=== PATIENT | male | born 1940 | race Native Hawaiian/Other Pacific Islander ===

== ENCOUNTER 2020-11-12 18:32 | Outpatient (CLI) | payer OTHER ==
[2020-11-12 20:04] LABS: POTASSIUM 5.2 mmol/L (3.6-5.2)
[2020-11-12 20:05] LABS: PLATELET COUNT 113 K/uL (142-355)
== END 2020-11-12 20:54 | disposition home or self-care (01) ==
LOC: LAB 18:32
PROVIDERS: ATTEND Internal Medicine
DX: Z00.00 Encounter for general adult medical examination without abnormal findings (principal); Z12.5 Encounter for screening for malignant neoplasm of prostate; Z79.899 Other long term (current) drug therapy
CPT/HCPCS: 80053; 80061; 81000; 84153; 84439; 84443; 85027